=== PATIENT | female | born 1965 | race Caucasian/White ===

== ENCOUNTER → 2016-09-02 | Outpatient (CLI) | payer BC ==
--- NOTE | 2016-09-02 10:36 | DIAGNOSTIC IMAGING REPORT ---
CHEST 2 VIEWS ROUTINE CLINICAL HISTORY: COUGH (786.2) COMPARISON STUDY: 09/10/2006 FINDINGS: The cardiac and mediastinal contours are normal. There is no evidence of focal pulmonary consolidation. There is no evidence of failure. No pleural effusions are visualized.[ IMPRESSION: No active disease in the chest. Electronically signed by: Danis Guillaume M.D. 09/02/2016 10:34 AM Dictated Date/Time: 09/02/2016 10:33 AM
== END | disposition home or self-care (01) ==
LOC: C.RADBBURG 10:16
PROVIDERS: ATTEND Physician Assistant
DX: R05 Cough (principal)

== ENCOUNTER → 2017-03-26 | Outpatient (CLI) | payer BC ==
--- NOTE | 2017-03-26 18:14 | DIAGNOSTIC IMAGING REPORT ---
PELVIS NO IV/ORAL CONT (CT) HISTORY: 51 years-old Female DIVERITICULITIS acute left lower quadrant abdominal pain COMPARISON: CT abdomen and pelvis 04/11/2016 TECHNIQUE: Multiple axial CT images of the pelvis were obtained without the use of contrast. A dose lowering technique was used consistent with the principals of MILTON. FINDINGS: There is mild to moderate wall thickening with surrounding summation of the adjacent mesocolon involving the mid sigmoid colon. Mild thickening of the adjacent peritoneal reflection. No evidence of perforation or abscess. Moderate diverticulosis of the left colon redemonstrated. No bowel obstruction. No pneumatosis. There is moderate distention of the urinary bladder. Uterus and adnexa are unremarkable. Vascular calcifications are noted within the pelvis. No significant ascites. Soft tissues are unremarkable. The bones appear intact. Moderate intervertebral disc space narrowing at L4-L5 and L5-S1. IMPRESSION: 1. Findings compatible with mild acute uncomplicated sigmoid diverticulitis. No perforation or abscess. 2. Mild distention of the urinary bladder. The above report was generated using voice recognition software. It may contain grammatical, syntax or spelling errors. Electronically signed by: Chucky Eckert M.D. 03/26/2017 6:13 PM Dictated Date/Time: 03/26/2017 6:09 PM
== END | disposition home or self-care (01) ==
LOC: C.CTS 17:45
PROVIDERS: ATTEND Family Medicine
DX: R10.9 Unspecified abdominal pain (principal)

== ENCOUNTER → 2017-07-07 | Outpatient (CLI) | payer OTHER ==
[~2017-07-07] MED LIST: OPTIRAY 320 IV PRN
--- NOTE | 2017-07-07 17:30 | DIAGNOSTIC IMAGING REPORT ---
CT OF THE ABDOMEN AND PELVIS WITH CONTRAST CLINICAL HISTORY: Acute abdominal pain. COMPARISON STUDY: CT of the abdomen and pelvis April 11, [address] of the pelvis March 26, 2017. TECHNIQUE: Following IV administration of 94 mL of Optiray-320, axial images of the abdomen and pelvis were obtained from the lung bases to the proximal femurs. Images were reviewed in the axial, sagittal, and coronal planes. IV contrast was administered without complication. A dose lowering technique was utilized adhering to the principles of ALARA. Oral contrast was administered. CT DOSE: 274.81 mGy.cm FINDINGS: A few subcentimeter right hepatic dome lesions are unchanged from earlier studies. These are benign. The spleen, adrenal glands and pancreas are normal. Several renal lesions measure near water attenuation reflect cysts. There is no hydronephrosis. There is sigmoid diverticulosis. Mild sigmoid colon wall thickening is noted with mild pericolonic infiltration. There is no free air or abscess. Findings are slightly greater than that shown on exam of March 26, 2017. There is no lymphadenopathy. There is suspected avascular necrosis of the right femoral head without collapse. IMPRESSION: 1. Mild acute sigmoid diverticulitis. No free air or abscess. 2. 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 Electronically signed by: Arun Madrigal M.D. 07/07/2017 5:29 PM Dictated Date/Time: 07/07/2017 5:22 PM
== END | disposition home or self-care (01) ==
LOC: C.CTS 14:46
PROVIDERS: ATTEND Family Medicine
DX: R10.9 Unspecified abdominal pain (principal)

== ENCOUNTER → 2017-07-10 | Outpatient (CLI) | payer OTHER ==
--- NOTE | 2017-07-10 13:58 | DIAGNOSTIC IMAGING REPORT ---
R PELVIS UNI HIP 2-3 V CLINICAL HISTORY: 52 years-old Female presenting with RIGHT HIP PAIN. TECHNIQUE: Single frontal view of the pelvis and frontal and frog-leg lateral views of the right hip were obtained. COMPARISON: Correlation made to CT from 07/07/2017. FINDINGS: The previously noted subchondral abnormality on CT is not evident on radiograph. No evidence of cortical depression at the right femoral head. The bony pelvis is normal. Bilateral hip joints, sacroiliac joints, pubic symphysis congruent. No acute fracture or malalignment. IMPRESSION: The abnormality concerning for osteonecrosis on most recent CT from 07/07/2017 is not radiographically apparent. This would be better visualized on noncontrast MR if further characterization is required. Electronically signed by: Albaro Zuñiga M.D. 07/10/2017 1:57 PM Dictated Date/Time: 07/10/2017 1:54 PM
== END | disposition home or self-care (01) ==
LOC: C.RDSM 13:10
PROVIDERS: ATTEND Family Medicine
DX: M25.551 Pain in right hip (principal)

== ENCOUNTER 2017-09-19 12:59 | Emergency (ER) | payer OTHER ==
[~2017-09-19] VITALS: Ht 170.2 cm; Wt 59.0 kg
[2017-09-19 13:08] VITALS: TEMP 37.1; Ht 170.2 cm; Wt 59.0 kg
[2017-09-19 13:27] VITALS: O2SAT 98
[2017-09-19] MEDS ORDERED: ALBUT/IPRATROP 3MG/0.5MG NEB 3 ML VIAL INH STA (13:28)
[2017-09-19] MEDS ORDERED: SODIUM CHLORIDE 0.9% 1000ML 1,000 ML IV STA (13:28)
[2017-09-19] MEDS ORDERED: ONDANSETRON INJ 2 MG/ML 2 ML VIAL IV STA (13:28)
[2017-09-19] MEDS ORDERED: METHYLPREDNISOLONE 125 MG VIAL IV STA (13:28)
[2017-09-19] MEDS ORDERED: KETOROLAC TROMETHAMINE 30 MG/ML VIAL IV STA (13:28)
[2017-09-19] MEDS ORDERED: ACETAMINOPHEN 500 MG TAB PO STA (13:28)
[2017-09-19] MEDS ORDERED: QVRINH80 INH (13:32)
[2017-09-19] MEDS ORDERED: MULTTAB58 PO (13:32)
[2017-09-19] MEDS ORDERED: CETI10TA84 PO (13:32)
[2017-09-19] MEDS ORDERED: PRMVC TOP (13:32)
[2017-09-19] MEDS ORDERED: SNG10 PO (13:32)
[2017-09-19] MEDS ORDERED: ASPI81TA28 PO (13:32)
[2017-09-19] MEDS ORDERED: MAGN250T22 PO (13:32)
[2017-09-19] MEDS ORDERED: ALBU18002 INH (13:32)
[2017-09-19] MEDS ORDERED: CYAN500T PO (13:32)
[2017-09-19] MEDS ORDERED: FLNIN NAE (13:32)
[2017-09-19] MEDS ORDERED: CHOL1000 PO (13:32)
--- NOTE | 2017-09-19 13:53 | EMERGENCY ROOM VISIT NOTE ---
History Report prepared by Mabel: Codey Dennison Under the Supervision of: Dr. Сергей Maloney M.D. First contact with patient: 13:22 Chief Complaint: ILLNESS Stated Complaint: WEAKNESS,COUGH History of Present Illness The patient is a 52 year old female who presents to the Emergency Room with complaints of constant chest tightness beginning this morning. The patient states that she became fatigued last night. She notes that when she woke up this morning, she had chest tightness as well as body aches, SOB, a low grade fever, nausea, and a cough. She reports that she tried using her inhaler for her SOB, but was unable to because of her cough. She denies any vomiting, urinary symptoms, sore throat, congestion, and known sick contacts. The patient states that she was at [facility] earlier today, who recommended that she visit the emergency department. She notes that she has not done any prolonged travel recently. She denies any history of heart attacks and blood clots but notes that she has a history of asthma. She rates her discomfort as a 6-7/10. Source of History: patient Onset: this morning Position: chest Symptom Intensity: 6-7/10 Quality: other (tightness) Timing: constant Associated Symptoms: + fevers (low grade), + cough, + SOB, + nausea, + fatigue, No sorethroat, No vomiting, No urinary symptoms Note: The patient also complains of body aches. She denies any congestion. Review of Systems See HPI for pertinent positives & negatives. A total of 10 systems reviewed and were otherwise negative. Past Medical & Surgical Medical Problems: (1) Asthma Family History No pertinent family history stated. Social History Smoking Status: Never Smoker Marital Status: Housing Status: lives with family Occupation Status: employed Current/Historical Medications Scheduled Aspirin (Aspirin Ec), 81 MG PO DAILY Beclomethasone Dip (Qvar), 1 PUFF INH BID Cetirizine (Zyrtec), 10 MG PO DAILY Cholecalciferol (Vitamin D3), 1 TAB PO DAILY Cyanocobalamin (Vitamin B-12), 500 MCG PO DAILY Estrogens, Conjugated (Premarin), 1 APPLN TOP WK Fluticasone Propionate (Fluticasone Propionate), 1 SPRAY SHER DAILY Levofloxacin (Levaquin), 750 MG PO QD@08 Magnesium Oxide (Magnesium), 1 TAB PO DAILY Montelukast Sod (Montelukast Sodium), 1 TAB PO DAILY Multiple Vitamin (Multivitamin), 1 TAB PO DAILY Prednisone (Prednisone), 2 TAB PO DAILY Scheduled PRN Albuterol Sulfate (Proair Respiclick), 2 PUFFS INH for Wheezing Allergies Coded Allergies: Gabapentin (Unverified Allergy, Intermediate, ., 09/19/17) Lanolin (Unverified Allergy, Intermediate, ., 09/19/17) Penicillins (Verified Allergy, Unknown, UNKNOWN "PCN", 09/19/17) Physical Exam Vital Signs Date Time Temp Pulse Resp B/P (MAP) Pulse Ox O2 Delivery O2 Flow Rate FiO2 09/19/17 16:15 81 102/55 93 09/19/17 13:55 89 16 100/61 96 Room Air 09/19/17 13:33 92 09/19/17 13:27 98 Room Air 09/19/17 13:08 37.1 101 18 96/67 95 Room Air Physical Exam GENERAL: Patient is in no acute distress. HEENT: No acute trauma, normocephalic atraumatic, mucous membranes moist, no nasal congestion, no scleral icterus. NECK: No stridor, no adenopathy, no meningismus, trachea is midline. LUNGS: Crackles at both bases primarily on the left, breath sounds equal, no wheezing, no respiratory distress, dry cough noted. HEART: Without murmurs gallops or rubs, regular rate and rhythm. ABDOMEN: Soft, nontender, bowel sounds positive, no hernias, no peritonitis. EXTREMITIES: No cyanosis or edema, full range of motion of all the joints without pain or difficulty, no signs for acute trauma. NEUROLOGIC: Oriented x 3, no acute motor or sensory deficits, no focal weakness. SKIN: No rash, no jaundice, no diaphoresis. Medical Decision & Procedures ER Provider Diagnostic Interpretation: Radiology results as stated below per my review and radiologist interpretation: CHEST ONE VIEW PORTABLE FINDINGS: Cardiac silhouette is within normal limits. No pneumothorax, pleural effusion or overt pulmonary edema. The right lung is clear. Subsegmental opacities of the lateral left lung base. Bones of the chest appear grossly intact. IMPRESSION: Subsegmental opacities of the lateral left lung base suggest atelectasis or pneumonia. The above report was generated using voice recognition software. It may contain grammatical, syntax or spelling errors. Electronically signed by: Chucky Eckert M.D. 09/19/2017 1:59 PM Laboratory Results 09/19/17 13:40 Red Blood Count 4.42, Mean Corpuscular Volume 87.1, Mean Corpuscular Hemoglobin 30.5, Mean Corpuscular Hemoglobin Concent 35.1, Mean Platelet Volume 9.9, Neutrophils (%) (Auto) 93.5, Lymphocytes (%) (Auto) 3.8, Monocytes (%) (Auto) 2.2, Eosinophils (%) (Auto) 0.1, Basophils (%) (Auto) 0.1, Neutrophils # (Auto) 16.58, Lymphocytes # (Auto) 0.67, Monocytes # (Auto) 0.39, Eosinophils # (Auto) 0.01, Basophils # (Auto) 0.02 09/19/17 13:40 Test 09/19/17 13:38 09/19/17 13:40 09/19/17 13:50 09/19/17 14:01 Influenza Type A (RT-PCR) Neg for Influ A (NEG) Influenza Type B (RT-PCR) Neg for Influ B (NEG) White Blood Count 17.73 K/uL (4.8-10.8) Red Blood Count 4.42 M/uL (4.2-5.4) Hemoglobin 13.5 g/dL (12.0-16.0) Hematocrit 38.5 % (37-47) Mean Corpuscular Volume 87.1 fL (80-100) Mean Corpuscular Hemoglobin 30.5 pg (25-34) Mean Corpuscular Hemoglobin Concent 35.1 g/dl (32-36) Platelet Count 240 K/uL (130-400) Mean Platelet Volume 9.9 fL (7.4-10.4) Neutrophils (%) (Auto) 93.5 % Lymphocytes (%) (Auto) 3.8 % Monocytes (%) (Auto) 2.2 % Eosinophils (%) (Auto) 0.1 % Basophils (%) (Auto) 0.1 % Neutrophils # (Auto) 16.58 K/uL (1.4-6.5) Lymphocytes # (Auto) 0.67 K/uL (1.2-3.4) Monocytes # (Auto) 0.39 K/uL (0.11-0.59) Eosinophils # (Auto) 0.01 K/uL (0-0.5) Basophils # (Auto) 0.02 K/uL (0-0.2) RDW Standard Deviation 41.4 fL (36.4-46.3) RDW Coefficient of Variation 12.9 % (11.5-14.5) Immature Granulocyte % (Auto) 0.3 % Immature Granulocyte # (Auto) 0.06 K/uL (0.00-0.02) Anion Gap 4.0 mmol/L (3-11) Est Creatinine Clear Calc Drug Dose 61.5 ml/min Estimated GFR () 74.3 Estimated GFR (Non- 64.1 BUN/Creatinine Ratio 9.1 (10-20) Calcium Level 9.5 mg/dl (8.5-10.1) Magnesium Level 2.3 mg/dl (1.8-2.4) Total Bilirubin 0.7 mg/dl (0.2-1) Aspartate Amino Transf (AST/SGOT) 16 U/L (15-37) Alanine Aminotransferase (ALT/SGPT) 21 U/L (12-78) Alkaline Phosphatase 103 U/L (45-117) Total Protein 7.9 gm/dl (6.4-8.2) Albumin 3.7 gm/dl (3.4-5.0) Globulin 4.2 gm/dl (2.5-4.0) Albumin/Globulin Ratio 0.9 (0.9-2) Bedside Lactic Acid Venous 1.36 mmol/L (0.90-1.70) Bedside Troponin I < 0.030 ng/ml (0-0.045) Urine Color YELLOW Urine Appearance CLOUDY (CLEAR) Urine pH 8.0 (4.5-7.5) Urine Specific [place] 1.016 (1.000-1.030) Urine Protein NEG (NEG) Urine Glucose (UA) NEG (NEG) Urine Ketones NEG (NEG) Urine Occult Blood 1+ (NEG) Urine Nitrite NEG (NEG) Urine Bilirubin NEG (NEG) Urine Urobilinogen NEG (NEG) Urine Leukocyte Esterase NEG (NEG) Urine WBC (Auto) 1-5 /hpf (0-5) Urine RBC (Auto) 5-10 /hpf (0-4) Urine Hyaline Casts (Auto) 0 /lpf (0-5) Urine Epithelial Cells (Auto) >30 /lpf (0-5) Urine Bacteria (Auto) 4+ (NEG) Laboratory results reviewed by me. Medications Administered Medications (Trade) Dose Ordered Sig/Jessica Route Start Time Stop Time Status Last Admin Dose Admin Ondansetron HCl (Zofran Inj) 4 mg NOW STAT IV 09/19/17 13:28 09/19/17 13:32 DC 09/19/17 13:54 4 MG Acetaminophen (Tylenol Tab) 1,000 mg NOW STAT PO 09/19/17 13:28 09/19/17 13:32 DC 09/19/17 13:55 1,000 MG Sodium Chloride 1,000 ml @ 999 mls/hr Q1H1M STAT IV 09/19/17 13:28 09/19/17 14:28 DC 09/19/17 13:28 999 MLS/HR Ketorolac Tromethamine (Toradol Inj) 30 mg NOW STAT IV 09/19/17 13:28 09/19/17 13:32 DC 09/19/17 13:54 30 MG Albuterol/ Ipratropium (Duoneb) 3 ml NOW STAT INH 09/19/17 13:28 09/19/17 13:32 DC 09/19/17 13:53 3 ML Methylprednisolone Sodium Succinate (Solu-Medrol IV) 80 mg NOW STAT IV 09/19/17 13:28 09/19/17 13:32 DC 09/19/17 13:54 80 MG Levofloxacin (Levaquin / D5W) 750 mg NOW STAT IV 09/19/17 14:13 09/19/17 14:14 DC 09/19/17 14:19 750 MG Sodium Chloride 500 ml @ 999 mls/hr Q31M STAT IV 09/19/17 14:29 09/19/17 14:59 DC 09/19/17 15:00 999 MLS/HR ECG Per My Interpretation Indication: chest pain Rate (beats per minute): 83 Rhythm: normal sinus Findings: no ectopy, other (Nonspecific lateral ST change, no ST elevation, no PVCs) ED Course 1324: The patient was evaluated in room B7. A complete history and physical exam was performed. 1328: Solu-Medrol IV 80mg IV, Duoneb 3ml INH, Toradol Inj 30mg IV, Acetaminophen 1000mg PO, Zofran Inj 4mg IV, Sodium Chloride 1000 ml @ 999 mls/ hr IV 1413: Levofloxacin 750mg IV 1429: Sodium Chloride 500 ml @ 999 mls/hr IV 1425: Reevaluated the patient. Discussed results and discharge instructions: She verbalized understanding and agreement. The patient is ready for discharge. Medical Decision Differential diagnoses include: influenza, flu-like illness, pneumonia, bronchitis, electrolyte imbalance, dehydration, anemia, exacerbation of asthma, sepsis. There is a moderate leukocytosis at 17,000, this is consistent with infection. No anemia. No significant electrolyte abnormality, kidney failure or hepatitis. EKG shows a normal sinus rhythm, no acute ischemia. Some nonspecific ST change was seen. Cardiac enzyme testing 1 is not consistent with acute cardiac injury. Influenza testing was negative. Urinalysis shows contamination, no infection. Blood cultures are pending. Chest film shows a patchy left lower lung pneumonia, no pneumothorax or CHF. Lactic acid level was not elevated making sepsis less likely. The patient received IV saline, she received a second bolus of saline IV. She received IV Toradol, oral Tylenol, IV Zofran. She was given IV Levaquin and a DuoNeb. She received IV Solu-Medrol. The patient is feeling improved, she is not hypoxic, she is not toxic. I do think she can be discharged with increased albuterol use, Levaquin and a course of prednisone. Hydration and rest were encouraged. She will follow with her doctors office. If worsening, if her breathing is not improving, she will return for reassessment. Medication Reconcilliation Current Medication List: was personally reviewed by me Blood Pressure Screening Patient's blood pressure: Normal blood pressure Blood pressure disposition: Did not require urgent referral Impression Primary Impression: Pneumonia Additional Impression: Exacerbation of asthma Scribe Attestation The scribe's documentation has been prepared under my direction and personally reviewed by me in its entirety. I confirm that the note above accurately reflects all work, treatment, procedures, and medical decision making performed by me. Departure Information Dispostion Home / Self-Care Prescriptions Prednisone (Prednisone) 20 Mg Tab 2 TAB PO DAILY for 5 Days, #10 TAB Prov: Сергей Maloney M.D. 09/19/17 Levofloxacin (Levaquin) 750 Mg Tab 750 MG PO QD@08, #5 TAB Prov: Сергей Maloney M.D. 09/19/17 Referrals Pranay Hinton M.D. (PCP) Forms HOME CARE DOCUMENTATION FORM, IMPORTANT VISIT INFORMATION, WORK / SCHOOL INSTRUCTIONS Patient Instructions [facility] Additional Instructions rest fluids albuterol 3 puffs every 4 hours tylenol and or motrin for fever and aches prednisone as directed--start tomorrow levaquin daily for 5 more days--start tomorrow see john hager for a reheck this week return for worsening symptoms or worsening breathing Problem Qualifiers
--- NOTE | 2017-09-19 14:00 | DIAGNOSTIC IMAGING REPORT ---
CHEST ONE VIEW PORTABLE HISTORY: 52 years-old Female EVALUATE RESPIRATORY DISTRESS.DYSPNEA acute respiratory distress COMPARISON: Chest radiographs 09/02/2016 TECHNIQUE: Portable AP view of the chest FINDINGS: Cardiac silhouette is within normal limits. No pneumothorax, pleural effusion or overt pulmonary edema. The right lung is clear. Subsegmental opacities of the lateral left lung base. Bones of the chest appear grossly intact. IMPRESSION: Subsegmental opacities of the lateral left lung base suggest atelectasis or pneumonia. The above report was generated using voice recognition software. It may contain grammatical, syntax or spelling errors. Electronically signed by: Chucky Eckert M.D. 09/19/2017 1:59 PM Dictated Date/Time: 09/19/2017 1:58 PM
[2017-09-19 14:12] LABS: BASO % 0.1 %; BASO ABS # 0.02 K/uL (0-0.2); EOS % 0.1 %; EOS ABS # 0.01 K/uL (0-0.5); HEMATOCRIT 38.5 % (37-47); HEMOGLOBIN 13.5 g/dL (12.0-16.0); IG# 0.06 K/uL (0.00-0.02); LYMPH % 3.8 %; LYMPH ABS # 0.67 K/uL (1.2-3.4); MEAN CELL VOLUME 87.1 fL (80-100); MEAN CORPUSCULAR HEMOGLOBIN 30.5 pg (25-34); MEAN CORPUSCULAR HGB CONC 35.1 g/dl (32-36); MEAN PLATELET VOLUME 9.9 fL (7.4-10.4); MONO % 2.2 %; MONO ABS # 0.39 K/uL (0.11-0.59); NEUT % 93.5 %; NEUT ABS # 16.58 K/uL (1.4-6.5); PLATELET COUNT 240 K/uL (130-400); RED CELL DISTRIBUTION WIDTH CV 12.9 % (11.5-14.5); RED CELL DISTRIBUTION WIDTH SD 41.4 fL (36.4-46.3); WHITE BLOOD COUNT 17.73 K/uL (4.8-10.8)
[2017-09-19] MEDS ORDERED: LEVAQUIN 750MG / 150ML D5W IV STA (14:13)
[2017-09-19 14:21] LABS: ALBUMIN 3.7 gm/dl (3.4-5.0); CALCIUM 9.5 mg/dl (8.5-10.1); CREATININE 1.02 mg/dl (0.60-1.20); POTASSIUM 3.8 mmol/L (3.5-5.1)
[2017-09-19 14:23] LABS: TOTAL PROTEIN 7.9 gm/dl (6.4-8.2)
[2017-09-19] MEDS ORDERED: SODIUM CHLORIDE 0.9% 500ML 500 ML IV STA (14:29)
[2017-09-19 15:13] LABS: INFLUENZA A PCR Neg for Influ A (NEG); INFLUENZA B PCR Neg for Influ B (NEG)
[2017-09-19] MEDS ORDERED: LEVO1TAB35 PO (15:33)
[2017-09-19] MEDS ORDERED: PRED20TA PO (15:33)
[2017-09-19 16:15] VITALS: BP 102/55; PULSE 81; O2SAT 93
--- NOTE | 2017-09-21 13:48 | Pharmacy Progress Note ---
ED Pharmacist Culture FollowUp Date of Service: September 21, 2017. Patient was sent home with a prescription for levofloxacin, which should cover the Klebsiella growing from the patient's urine culture.
== END 2017-09-19 16:15 | disposition home or self-care (01) ==
LOC: C.EDB 13:01
DX: J18.9 Pneumonia, unspecified organism (principal); J45.901 Unspecified asthma with (acute) exacerbation; Z79.82 Long term (current) use of aspirin; Z79.899 Other long term (current) drug therapy; Z88.0 Allergy status to penicillin; Z88.8 Allergy status to other drugs, medicaments and biological substances

== ENCOUNTER → 2017-09-29 | Outpatient (CLI) | payer OTHER ==
[~2017-09-29] MED LIST changes: +ALBU18002 INH; +ASPI81TA28 PO; +CETI10TA84 PO; +CHOL1000 PO; +CYAN500T PO; +FLNIN NAE; +LEVO1TAB35 PO; +MAGN250T22 PO; +MULTTAB58 PO; -OPTIRAY 320 IV PRN; +PRMVC TOP; +QVRINH80 INH; +SNG10 PO
--- NOTE | 2017-09-29 12:46 | DIAGNOSTIC IMAGING REPORT ---
CHEST 2 VIEWS ROUTINE HISTORY: Abnormal chest x-ray. Pneumonia. Follow-up. COMPARISON: Chest 09/19/2017. FINDINGS: The lungs are clear. Cardiac silhouette is normal in size. No pleural effusions. No pneumothorax. IMPRESSION: No acute process. Electronically signed by: Kev Alvarez M.D. 09/29/2017 12:45 PM Dictated Date/Time: 09/29/2017 12:44 PM
== END | disposition home or self-care (01) ==
LOC: C.RAD1850 12:28
PROVIDERS: ATTEND Physician Assistant
DX: J18.9 Pneumonia, unspecified organism (principal)